=== PATIENT | male | born 1980 | race Caucasian/White ===

== ENCOUNTER 2017-12-13 15:45 | Emergency (ER) | payer OTHER | END 2017-12-13 16:41 | disposition home or self-care (01) | LOC: FTE 15:45 | DX: H61.21 Impacted cerumen, right ear (principal); H61.22 Impacted cerumen, left ear | CPT/HCPCS: 69209; 99283-25 ==

== ENCOUNTER 2018-09-02 05:36 | Emergency (ER) | payer OTHER | END 2018-09-02 07:41 | disposition home or self-care (01) | LOC: FTE 05:36 | DX: H60.391 Other infective otitis externa, right ear (principal); H61.22 Impacted cerumen, left ear | CPT/HCPCS: 69209; 99283-25 ==